=== PATIENT | female | born 1995 | race American Indian/Alaskan Native ===

== ENCOUNTER 2016-09-09 10:48 | Emergency (ER) | payer MEDICAID, OTHER ==
[2016-09-09 11:02] VITALS: BP 124/75
[2016-09-09 11:25] LABS: Basophils % (Auto) 0.5 % (0.0-1.8); Eosinophils % (Auto) 1.4 % (0.0-4.3); Hematocrit 33.7 % (30.3-42.9); Hemoglobin 10.3 gm/dl (10.1-14.3); Mean Corpuscular HGB Conc 31 % (30-34); Platelet Count 393 K/mm3 (140-440); Red Blood Count 4.82 M/mm3 (3.65-5.03); Red Cell Distribution Width 18.6 % (13.2-15.2); White Blood Count 10.3 K/mm3 (4.5-11.0)
[2016-09-09 11:26] LABS: Mean Corpuscular Hemoglobin 22 pg (28-32); Mean Corpuscular Volume 70 fl (79-97)
[2016-09-09 11:32] LABS: Bacteria,Urine 1+ /HPF (Negative); Bilirubin,Urine NEG (Negative); Blood,Urine SM (Negative); Ketones,Urine 20 mg/dL (Negative); Leukocyte Esterase,Urine MOD (Negative); Mucus,Urine 3+ /HPF; Nitrite,Urine NEG (Negative); Urobilinogen,Urine < 2.0 mg/dL (<2.0)
[2016-09-09 11:47] LABS: Alanine Aminotransferase 21 units/L (7-56); Albumin 4.1 g/dL (3.9-5); Albumin/Globulin Ratio 1.1 %; Alkaline Phosphatase 53 units/L (35-129); Anion Gap 18 mmol/L; BUN/Creatinine Ratio 28.33; Bilirubin,Total 0.3 mg/dL (0.1-1.2); Blood Urea Nitrogen 17 mg/dL (7-17); Carbon Dioxide 24 mmol/L (22-30); Chloride 100.4 mmol/L (98-107); Glucose 91 mg/dL (65-100); Lipase 34 units/L (13-60); Potassium 3.7 mmol/L (3.6-5.0); Sodium 139 mmol/L (137-145)
--- NOTE | 2016-09-12 19:37 | ED Elopement Review ---
ED Pt Elopement review - Results review Lab results: Laboratory Tests 09/09/16 09/09/16 09/09/16 11:14 11:14 11:14 WBC 10.3 RBC 4.82 Hgb 10.3 Hct 33.7 MCV 70 L MCH 22 L MCHC 31 RDW 18.6 H Plt Count 393 Lymph % (Auto) 20.3 [place] % (Auto) 6.5 Eos % (Auto) 1.4 Baso % (Auto) 0.5 Lymph # 2.1 [place] # 0.7 Eos # 0.1 Baso # 0.0 Seg Neutrophils % 71.3 H Seg Neutrophils # 7.3 Sodium 139 Potassium 3.7 Chloride 100.4 Carbon Dioxide 24 Anion Gap 18 BUN 17 Creatinine 0.6 L Estimated GFR > 60 BUN/Creatinine Ratio 28.33 Glucose 91 Calcium 9.0 Total Bilirubin 0.3 AST 14 ALT 21 Alkaline Phosphatase 53 Total Protein 8.0 Albumin 4.1 Albumin/Globulin Ratio 1.1 Lipase 34 HCG, Qual Negative Urine Color Urine Turbidity Urine pH Ur Specific [place] Urine Protein Urine Glucose (UA) Urine Ketones Urine Blood Urine Nitrite Urine Bilirubin Urine Urobilinogen Ur Leukocyte Esterase Urine WBC (Auto) Urine RBC (Auto) U Epithel Cells (Auto) Urine Bacteria (Auto) Amorphous Crystals Urine Mucus 09/09/16 Unknown WBC RBC Hgb Hct MCV MCH MCHC RDW Plt Count Lymph % (Auto) [place] % (Auto) Eos % (Auto) Baso % (Auto) Lymph # [place] # Eos # Baso # Seg Neutrophils % Seg Neutrophils # Sodium Potassium Chloride Carbon Dioxide Anion Gap BUN Creatinine Estimated GFR BUN/Creatinine Ratio Glucose Calcium Total Bilirubin AST ALT Alkaline Phosphatase Total Protein Albumin Albumin/Globulin Ratio Lipase HCG, Qual Urine Color Yellow Urine Turbidity Cloudy Urine pH 6.0 Ur Specific [place] 1.029 Urine Protein 30 mg/dl Urine Glucose (UA) Neg Urine Ketones 20 Urine Blood Sm Urine Nitrite Neg Urine Bilirubin Neg Urine Urobilinogen < 2.0 Ur Leukocyte Esterase Mod Urine WBC (Auto) 14.0 H Urine RBC (Auto) 6.0 U Epithel Cells (Auto) 26.0 H Urine Bacteria (Auto) 1+ Amorphous Crystals Few Urine Mucus 3+ - Call Back decision Pt Call Back Decision: No action required
== END 2016-09-09 19:20 | disposition left against medical advice (07) ==
LOC: ED 10:48
DX: R51 Headache (principal); R10.30 Lower abdominal pain, unspecified; M54.5 Low back pain; R11.2 Nausea with vomiting, unspecified; Z91.013 Allergy to seafood; Z53.21 Procedure and treatment not carried out due to patient leaving prior to being seen by health care provider
CPT/HCPCS: 36415; 80053; 81001; 83690; 84703; 85025

== ENCOUNTER 2018-02-08 15:30 | Emergency (ER) | payer OTHER ==
[2018-02-08 16:03] LABS: Basophils % (Auto) 0.5 % (0.0-1.8); Eosinophils % (Auto) 0.1 % (0.0-4.3); Hematocrit 33.2 % (30.3-42.9); Hemoglobin 10.5 gm/dl (10.1-14.3); Lymphocytes # (Auto) 1.6 K/mm3 (1.2-5.4); Lymphocytes % (Auto) 19.4 % (13.4-35.0); Mean Corpuscular HGB Conc 32 % (30-34); Mean Corpuscular Volume 73 fl (79-97); Monocytes # (Auto) 0.5 K/mm3 (0.0-0.8); Monocytes % (Auto) 6.6 % (0.0-7.3); Platelet Count 317 K/mm3 (140-440); Red Blood Count 4.55 M/mm3 (3.65-5.03); Red Cell Distribution Width 19.6 % (13.2-15.2)
[2018-02-08 16:05] LABS: Mean Corpuscular Hemoglobin 23 pg (28-32)
[2018-02-08 16:09] LABS: Bilirubin,Urine NEG (Negative); Blood,Urine LG (Negative); Color,Urine Red (Yellow); Mucus,Urine 3+ /HPF; Urobilinogen,Urine < 2.0 mg/dL (<2.0)
[2018-02-08 16:10] LABS: Protein,Urine >500 mg/dL (Negative); RBC,Urine > 182.0 /HPF (0.0-6.0)
--- NOTE | 2018-02-08 18:04 | Ultrasound Report ---
FINAL REPORT EXAM: US OB < = 14 WEEKS FETUS HISTORY: abd pain/ vaginal bleeding TECHNIQUE: Transabdominal grayscale and color-flow imaging of the pelvis was performed. Comparison: Transvaginal OB ultrasound also performed today FINDINGS: The uterus measures 10.3 centimeters x 6.6 centimeters by 7.6 centimeters. There is demonstration of an intrauterine gestational sac with pole. Estimated gestational age by measurements of crown-rump length is 7 weeks 1 day. heart rate is measured at 118 beats per minute. There is demonstration of a subchorionic collection that is better visualized on the transvaginal study. The right ovary measures 2.4 centimeters x 1.7 centimeters x 2.1 centimeters and is unremarkable in appearance. The left ovary measures 4.2 centimeters x 2.6 centimeters x 3.7 centimeters and contains a probable corpus luteum cyst. No free fluid is demonstrated in the pelvis. IMPRESSION: 1. Demonstration of an intrauterine gestation with estimated gestational age of 7 weeks 1 day by measurements of crown-rump length with heart rate measured at 118 beats per minute. 2. Probable corpus luteum cyst left ovary. 3. Subchorionic collection that is better visualized on the transvaginal study. Please see report of transvaginal study also performed today.
--- NOTE | 2018-02-08 18:07 | Ultrasound Report ---
FINAL REPORT EXAM: US OB TRANSVAGINAL HISTORY: abd pain/ vaginal bleeding TECHNIQUE: Transvaginal grayscale, color flow and Doppler waveform imaging of the pelvis was performed. Comparison: Transabdominal ultrasound also performed today FINDINGS: There is demonstration of a heterogeneous subchorionic avascular collection that measures approximately 4.2 centimeters x 2.6 centimeters by 4.7 centimeters. This may represent a subchorionic hemorrhage. There is demonstration of an intrauterine gestational sac with yolk sac and pole. Estimated gestational age by measurements of crown-rump length is 6 weeks 6 days. heart rate is measured at 118 beats per minute. The right ovary measures 2.8 centimeters x 1.5 centimeters x 3 centimeters and is unremarkable in appearance. The left ovary measures 4.2 centimeters x 3.8 centimeters x 2.8 centimeters and contains an approximately 2.6 centimeter probable corpus luteum cyst. No free fluid is demonstrated in the pelvis. IMPRESSION: 1. Intrauterine gestation with estimated gestational age of 6 weeks 6 days by measurements of crown-rump length. heart rate is measured at 118 beats per minute. 2. Subchorionic collection which measures approximately 4.2 centimeters x 2.6 centimeters x 4.7 centimeters suggestive of a subchorionic hemorrhage. Continued surveillance would be helpful.
[2018-02-08] MEDS ORDERED: NACL 0.9% 1000 ML 1,000 ML IV ONE (20:52)
[2018-02-08] MEDS ORDERED: TYLENOL PO ONE (20:52)
[2018-02-08] MEDS ORDERED: ZOFRAN IV ONE (20:52)
[2018-02-08] MEDS ORDERED: D5NS 1,000 ML IV SCH (21:00)
--- NOTE | 2018-02-08 21:42 | Emergency Department Report ---
ED HPI - General Chief complaint: Vaginal Bleeding Stated complaint: /BLEEDING Time Seen by Provider: 02/08/18 20:45 Source: patient Mode of arrival: Ambulatory Limitations: No Limitations - History of Present Illness Initial comments: Patient is a 23-year-old female who states that yesterday she felt as though she urinated on herself and there was some blood in her underwear. Patient states that since she's had some lower abdominal suprapubic crampiness. Patient also states that for the last 2-3 days she has been unable to keep anything down and having nausea vomiting. Patient denies any fever or dysuria diarrhea cough cold congestion at this time. - Related Data Previous Rx's Medication Instructions Recorded Last Taken Type Albuterol Sulfate [Ventolin HFA] 2 puff IH Q4H PRN #1 [email or web address] 03/10/15 20:00 Rx Nitrofurantoin Monohyd/M-Cryst 100 mg PO BID #14 capsule 02/08/18 Unknown Rx [Macrobid 100 mg Capsule] Ondansetron [Zofran Odt] 4 mg PO Q8HR PRN #10 tab.rapdis 02/08/18 Unknown Rx Allergies Allergy/AdvReac Type Severity Reaction Status Date / Time shrimp Allergy Angioedema Verified 09/09/16 10:56 ED Review of Systems ROS: Stated complaint: /BLEEDING Other details as noted in HPI Comment: All other systems reviewed and negative ED Past Medical Hx - Past Medical History Previous Medical History?: Yes Hx Asthma: Yes - Surgical History Past Surgical History?: No - Social History Smoking Status: Never Smoker Substance Use Type: None - Medications Home Medications: Home Medications Medication Instructions Recorded Confirmed Last Taken Type Albuterol Sulfate [Ventolin HFA] 2 puff IH Q4H PRN #1 [email or web address] 03/10/1509/07/16 20:00 Rx Nitrofurantoin Monohyd/M-Cryst 100 mg PO BID #14 capsule 02/08/18 Unknown Rx [Macrobid 100 mg Capsule] Ondansetron [Zofran Odt] 4 mg PO Q8HR PRN #10 tab.rapdis 02/08/18 Unknown Rx ED Physical Exam - General Limitations: No Limitations General appearance: alert, in no apparent distress - Head Head exam: Present: atraumatic, normocephalic - Eye Eye exam: Present: normal appearance - ENT ENT exam: Present: mucous membranes moist - Neck Neck exam: Present: normal inspection - Respiratory Respiratory exam: Present: normal lung sounds bilaterally. Absent: respiratory distress, wheezes, rales, rhonchi - Cardiovascular Cardiovascular Exam: Present: regular rate, normal rhythm. Absent: systolic murmur, diastolic murmur, rubs, gallop - GI/Abdominal GI/Abdominal exam: Present: soft, tenderness (suprapubic tenderness), normal bowel sounds. Absent: distended, guarding, rebound, rigid - Extremities Exam Extremities exam: Present: normal inspection - Back Exam Back exam: Present: normal inspection - Neurological Exam Neurological exam: Present: alert, oriented X3 - Psychiatric Psychiatric exam: Present: normal affect, normal mood - Skin Skin exam: Present: warm, dry, intact, normal color. Absent: rash ED Course Vital Signs 02/08/18 02/08/18 15:40 21:16 Temperature 98.8 F 98 F Pulse Rate 103 H 74 Respiratory 18 17 Rate Blood Pressure 134/77 Blood Pressure 113/60 [Left] O2 Sat by Pulse 100 100 Oximetry ED Medical Decision Making - Lab Data Result diagrams: 02/08/18 15:48 Labs 02/08/18 02/08/18 02/08/18 15:48 15:48 15:48 WBC 8.1 RBC 4.55 Hgb 10.5 Hct 33.2 MCV 73 L MCH 23 L MCHC 32 RDW 19.6 H Plt Count 317 Lymph % (Auto) 19.4 [place] % (Auto) 6.6 Eos % (Auto) 0.1 Baso % (Auto) 0.5 Lymph # 1.6 [place] # 0.5 Eos # 0.0 Baso # 0.0 Seg Neutrophils % 73.4 H Seg Neutrophils # 5.9 HCG, Quant 93029 H Urine Color Urine Turbidity Urine pH Ur Specific [place] Urine Protein Urine Glucose (UA) Urine Ketones Urine Blood Urine Nitrite Urine Bilirubin Urine Urobilinogen Ur Leukocyte Esterase Urine WBC (Auto) Urine RBC (Auto) Urine Mucus Blood Type B POSITIVE Antibody Screen Negative 02/08/18 15:52 WBC RBC Hgb Hct MCV MCH MCHC RDW Plt Count Lymph % (Auto) [place] % (Auto) Eos % (Auto) Baso % (Auto) Lymph # [place] # Eos # Baso # Seg Neutrophils % Seg Neutrophils # HCG, Quant Urine Color Red Urine Turbidity Cloudy Urine pH 6.0 Ur Specific [place] 1.030 Urine Protein >500 Urine Glucose (UA) 50 Urine Ketones 20 Urine Blood Lg Urine Nitrite Neg Urine Bilirubin Neg Urine Urobilinogen < 2.0 Ur Leukocyte Esterase Neg Urine WBC (Auto) 12.0 H Urine RBC (Auto) > 182.0 Urine Mucus 3+ Blood Type Antibody Screen - Radiology Data Ultrasound shows a 6-1/2 week IUP with good heartbeat. There is a small subchorionic hemorrhage present. - Medical Decision Making The patient did have small amount of ketones in her urine. Patient will be hydrated adequately here in the emergency department. Patient also has a very mild urinary tract infection will be treated as an outpatient. Patient does have a viable IUP and ectopic is ruled out. After IV fluids patient be discharged home. Critical care attestation.: If time is entered above; I have spent that time in minutes in the direct care of this critically ill patient, excluding procedure time. ED Disposition Clinical Impression: Ketonuria Subchorionic hematoma Qualifiers: Fetus number: single or unspecified fetus Trimester: first trimester Qualified Code(s): O41.8X10 - Other specified disorders of amniotic fluid and membranes, first trimester, not applicable or unspecified; O46.8X1 - Other antepartum hemorrhage, first trimester UTI in Qualifiers: Trimester: first trimester Qualified Code(s): O23.41 - Unspecified infection of urinary tract in , first trimester Disposition: DC-01 TO HOME OR SELFCARE Is pt being admited?: No Does the pt Need Aspirin: No Condition: Stable Instructions: Urinary Tract Infection in Women (ED), Dehydration (ED) Referrals: PRIMARY CARE, [Primary Care Provider] - 3-5 Days Time of Disposition: 21:42
[2018-02-08 23:35] VITALS: BP 119/60
== END 2018-02-08 23:30 | disposition home or self-care (01) ==
LOC: ED 15:30
DX: O46.8X1 Other antepartum hemorrhage, first trimester (principal); O41.8X10 Other specified disorders of amniotic fluid and membranes, first trimester, not applicable or unspecified; O23.41 Unspecified infection of urinary tract in pregnancy, first trimester; R82.4 Acetonuria; J45.909 Unspecified asthma, uncomplicated; Z91.013 Allergy to seafood; Z3A.01 Less than 8 weeks gestation of pregnancy
CPT/HCPCS: 36415; 76801; 76817; 81001; 84702; 85025; 86850; 86900; 86901; 96361; 96374; 99284; J2405; J7030; J7042